=== PATIENT | male | born 1965 | race Caucasian/White ===

== ENCOUNTER 2017-05-18 20:29 | Emergency (ER) | payer MEDICAID ==
--- NOTE | 2017-05-18 20:41 | EDPHY ---
H & P Stated Complaint: Hernia pain - Personal History Current Tetanus/Diphtheria Vaccine: Unsure Current Tetanus Diphtheria and Acellular Pertussis (TDAP): Unsure Tetanus Vaccine Date: < 5 years - Medical/Surgical History Hx Asthma: No Hx Chronic Respiratory Disease: Yes Hx Diabetes: No Hx Cardiac Disease: Yes Hx Renal Disease: Yes Hx Cirrhosis: No Hx Alcoholism: No Hx HIV/AIDS: No Hx Splenectomy or Spleen Trauma: No Other PMH: umbilical hernia repair, cholecystectomy, ulnar nerve transposition, uvuloplasty, hemorrhoid banding, vasectomy, right and left knee arthroscopy, right hand surgery, renal lithiasis, sleep apnea, pneumonia, CM, pancreatitis, rib and collar bone fractures, abd pain, anxiety, GERD, gout, CHF, HTN, irritable bowel syndrome - Social History Smoking Status: Former smoker HPI/ROS: CHIEF COMPLAINT: "My hernia's are hurting me" HISTORY OF PRESENT ILLNESS: 52-year-old male arrives via ambulance from the [facility] complaining of "hernia pain" worse in the past 12 hours , present for several months, has been evaluated at multiple hospitals for similar, told that he has omental only containing hernias. He has not had surgical consultation, states he is at difficulty secondary to his Medicaid obtaining surgical consultation he has had no nausea or vomiting. This evening he drove to [facility] in [place] on [address] secondary to increased anxiety related to family issues at home in [place], [place]. While there he was complaining of back and abdominal pain it and EMS was called. He has been tolerating oral intake. He is currently hungry. Bowel movements have been normal. Passing gas and stool as normal. No incontinence. No retention. No saddle anesthesia. No lower extremity radiculopathy. PRIMARY CARE PROVIDER: None REVIEW OF SYSTEMS: A ten point review of systems was performed and is negative with the exception of the items mentioned in the HPI PAST MEDICAL & SURGICAL HISTORY: Chronic anxiety. Chronic abdominal pain secondary to multiple abdominal wall hernia SOCIAL HISTORY: denies cigarette use PHYSICAL EXAM (Prior to examination, patient consented to physical exam, hands were washed and my usual and customary physical exam procedures followed) 1) GENERAL: Well-developed, well-nourished, alert and oriented. Appears uncomfortable 2) HEAD: Normocephalic, atraumatic 3) HEENT: Pupils equal, round, reactive to light bilaterally. Sclera anicteric. Nasopharynx, oropharynx, clear, no lesions. Moist mucous membranes 4) NECK: Full range of motion, no meningeal signs. 5) LUNGS: Clear auscultation bilaterally, no wheezes, no rhonchi, no retractions. 6) HEART: Regular rate and rhythm, no murmur, no heave, no gallop. 7) ABDOMEN: tender to palpation periumbilical region, tender to palpation left inguinal region. I am unable to appreciate any mass or No guarding, no rebound , no focal tenderness, negative McBurney's, negative Bojorquez's, negative Rovsing' s, negative peritoneal sign, 8) MUSCULOSKELETAL: Moving all extremities, no focal areas of tenderness, no obvious trauma. No peripheral edema or discoloration. 9) BACK: No CVA tenderness, no midline vertebral tenderness, no fluctuance, no step-off, no obvious trauma, no visual or palpable abnormality. No midline pain. Patella and Achilles reflexes are intact to bilateral strength 5/5. 10) SKIN: No rash, no petechiae. 11) : Normal male external genitalia, bilateral testicles nontender, bilateral cremasteric reflex present and brisk, no inguinal mass. No signs of scrotal abnormality such as Donnie's gangrene or cellulitis. Perineum is nontender. Full sensation of perineum. DIFFERENTIAL DIAGNOSIS: in no particular include but limited to incarcerated hernia, strangulated hernia, omental hernia (Claudia,Adeola Marycruz) Constitutional: Initial Vital Signs Temperature (C) 36.8 C 05/18/17 20:32 Heart Rate 56 L 05/18/17 20:32 Respiratory Rate 18 05/18/17 20:32 Blood Pressure 129/81 H 05/18/17 20:32 O2 Sat (%) 94 05/18/17 20:32 O2 Delivery Mode Room Air Allergies/Adverse Reactions: carbamazepine [From Tegretol] Allergy (Verified 02/23/12 16:44) doxazosin mesylate [From Cardura] Allergy (Verified 12/14/14 12:15) lisinopril Allergy (Verified 12/14/14 12:14) mometasone furoate [From Nasonex] Allergy (Verified 02/23/12 16:44) succinylcholine [Succinylcholine] Allergy (Verified 02/23/12 16:43) Home Medications: Medication Instructions Recorded Albuterol [Proventil Inhaler HFA 1 - 2 puffs IH Q4 PRN 04/26/13 (*)] Carvedilol [Coreg (*)] 25 mg PO TIDMEAL 04/26/13 Thyroid,Pork [ARMOUR THYROID] 15 mg PO DAILY 04/26/13 Allopurinol [Allopurinol 300 MG 150 mg PO 12/14/14 (RX)] Digoxin [Digitek] 250 mcg PO DAILY 12/14/14 Furosemide [Lasix 40 MG (*)] 40 mg PO DAILY PRN 12/14/14 Gabapentin [Neurontin 300 MG (*)] 300 mg PO BID PRN 12/14/14 Isosorbide Mononitrate 10 mg PO BID 12/14/14 Meloxicam [Mobic 15 mg] 15 mg PO DAILY 12/14/14 Polyethylene Glycol 3350 [Miralax 17 gm PO DAILY PRN 12/14/14 17 gm (*)] Ranitidine HCl [Zantac 75] 75 mg PO 12/14/14 Spironolactone [Aldactone 25 MG 25 mg PO DAILY 12/14/14 (*)] Tramadol HCl 50 mg PO TID PRN 12/14/14 hydrALAZINE [Apresoline 10 mg (*)] 10 mg PO BID 12/14/14 prednisoLONE ACET 1% [Pred Forte 1 drops EACHEYE DAILY PRN 12/14/14 1% (*)] oxyCODONE IR [Oxycodone Ir (*)] 10 mg PO Q6 PRN #10 tab 12/15/14 Medical Decision Making - Diagnostics Imaging Results: Imaging Impressions Abdomen/Pelvis CT 05/18/17 21:52 Impression: 1. Recurrent anterior midline periumbilical hernia containing omental fat. 2. Enlarging solid-appearing 2.1 cm mass from the posterior cortex of the upper pole of the right kidney, possible renal cell malignancy. Focused sonography may be of benefit in determining whether this represents a complex cystic or solid mass. Results called to Jakbu Taylor PA-C, at 10:20 p.m. ED Course/Re-evaluation: The patient was evaluated and managed by the physician tutoring assistant. I have reviewed this chart and I agree with the findings and plan of care as documented , as indicated by my signature. I am the secondary supervising physician. ( Constanza Valentin) 8:50 p.m.: This patient has no palpable abdominal mass, no visible tissue changes such as gangrenous changes. I have reviewed old medical records on this patient via [facility]. Plan will be CT scan of the abdomen for evaluation of abdominal pain in presence of known multiple hernias. Care of patient under supervision of secondary supervising physician Dr Valentin with whom I discussed care . 10:00 p.m.: I reviewed the patient's old medical records and his current creatinine of 1.9. This compares to a creatinine of 1.48 obtained on 2016 at [facility] Emergency Department. 10:35 p.m.: I reviewed the patient's imaging results with him. I re-examined him. He is comfortable at this time. He has no evidence of incarceration or gangrene to his ventral hernia. I have recommended follow-up with General surgery in a provided this referral information. Also noted to have a renal mass which necessitates further, non emergent, evaluation. Recommended speak with his primary care provider and also given the name of it lead manufacturing engineer and urologist for further evaluation. At this time I do not think that hospitalization is currently indicated. Doubt acute surgical abdominal pathology. Encouraged to return to the emergency department develops new or worsening symptoms or feels unsafe at home. He does repeatedly mention the emotional stresses at home but states that he does feel safe going home. (Adeola Taylor) - Data Points Laboratory Results: Laboratory Results 05/18/17 21:02 05/18/17 21:02 Medications Given: Discontinued Medications Ketorolac Tromethamine (Toradol) 30 mg IVP EDNOW ONE Stop: 05/18/17 20:49 Last Admin: 05/18/17 21:01 Dose: 30 mg Lorazepam (Ativan Injection) 1 mg IVP EDNOW ONE Stop: 05/18/17 20:49 Last Admin: 05/18/17 21:02 Dose: 1 mg Lorazepam (Ativan Injection) 1 mg IVP EDNOW ONE Stop: 05/18/17 21:50 Last Admin: 05/18/17 21:53 Dose: 1 mg Morphine Sulfate (Morphine) 4 mg IVP EDNOW ONE Stop: 05/18/17 21:25 Last Admin: 05/18/17 21:27 Dose: 4 mg Departure - Departure Disposition: Home, Routine, Self-Care Clinical Impression: Ventral hernia Qualifiers: Obstruction and gangrene presence: without obstruction or gangrene Qualified Code(s): K43.9 - Ventral hernia without obstruction or gangrene Condition: Good Instructions: Ventral Hernia (ED) Additional Instructions: Return to the ER if you develop new or worsening abdominal pain, if you develop fevers, if you have a change in her bowel movements, cannot pass gas or stool, or any other symptoms that concern you. You have a mass on your kidney that needs further evaluation. Recommend he follow up with the primary care provider and a lead manufacturing engineer (kidney doctor) for further evaluation. Referrals: Tobi Morgan DO [Primary Care Provider] - As per Instructions Lore Barahona MD [Medical Doctor] - 2-3 days, call for appt. (Dr. Lore Barahona is a general surgeon) Albert Morales MD [Medical Doctor] - 2-3 days, call for appt. (Dr. Albert Morales is a lead manufacturing engineer (kidney doctor)) Cameron Morris MD [Medical Doctor] - 2-3 days, call for appt. (Dr Morris is a urologist)
[2017-05-18] MEDS ORDERED: KETOROLAC 30 MG/1 ML SDV IVP ONE (20:48)
[2017-05-18] MEDS ORDERED: LORazepam 2 MG/ML INJ IVP ONE ×2 (20:48→21:49)
[2017-05-18 21:36] LABS: PLATELET COUNT 222 10^3/uL (150-400)
[2017-05-18 22:52] VITALS: BP 118/70; PULSE 64; RESP 16; TEMP 98.4; O2SAT 96
== END 2017-05-18 22:50 | disposition home or self-care (01) ==
LOC: EDUNIT#
DX: K43.9 Ventral hernia without obstruction or gangrene (principal); I11.0 Hypertensive heart disease with heart failure; I50.9 Heart failure, unspecified; Z87.891 Personal history of nicotine dependence; Z90.49 Acquired absence of other specified parts of digestive tract
CPT/HCPCS: 82947-QW; 96374; J1885; J2060